=== PATIENT | male | born 1980 | race African-American/Black ===

== ENCOUNTER 2022-02-10 23:53 | Emergency (ER) | payer BC ==
[2022-02-11 00:11] VITALS: BP 135/81; PULSE 76; TEMP 98; BMI 28.7
[2022-02-11] MEDS ORDERED: metroNIDAZOLE 250 MG TABLET PO ONE (00:29)
[2022-02-11 01:38] LABS: EPI CELLS 19 /uL (0-25.1); HYALINE CASTS 8 /uL (0-3.1); PH,URINE 6.5 (5.0-8.0); URINE APPEARANCE CLEAR; URINE BACTERIA 141 /uL (0-1359); URINE BILIRUBIN NEGATIVE (NEGATIVE); URINE COLOR YELLOW; URINE GLUCOSE (UA) NEGATIVE (NEGATIVE); URINE KETONE NEGATIVE (NEGATIVE); URINE LEUK ESTERASE 1+ (NEGATIVE); URINE NITRITE NEGATIVE (NEGATIVE); URINE PROTEIN NEGATIVE (NEGATIVE); URINE RBC 5 /uL (0-23.9); URINE WBC 47 /uL (0-25.8)
[2022-02-11 02:58] LABS: HIV INTERPRETATION NEGATIVE (NEGATIVE)
== END 2022-02-11 02:03 | disposition home or self-care (01) ==
LOC: JER 23:53
DX: R36.9 Urethral discharge, unspecified (principal)
CPT/HCPCS: 36415; 81003; 86780; 87086; 87389; 87491; 87591; 99284-25

== ENCOUNTER 2022-04-24 21:14 | Emergency (ER) | payer OTHER, BC ==
[2022-04-24 21:27] VITALS: BP 125/80; PULSE 61; TEMP 98.3; BMI 22.8
[2022-04-24] MEDS ORDERED: KETOROLAC TROMETHAMINE 30 MG/1 ML VIAL IM ONE (22:46)
[2022-04-24] MEDS ORDERED: KETOROLAC TROMETHAMINE 30 MG/1 ML VIAL ONE (22:52)
== END 2022-04-24 23:12 | disposition home or self-care (01) ==
LOC: JERFT 21:14
PROC: 3E0233Z Introduction of Anti-inflammatory into Muscle, Percutaneous Approach (ICD-10-PCS; principal; 2022-04-24)
DX: M79.10 Myalgia, unspecified site (principal); M54.2 Cervicalgia
CPT/HCPCS: 99284-25

== ENCOUNTER 2022-05-05 11:46 | Emergency (ER) | payer OTHER, BC ==
[2022-05-05 12:07] VITALS: BP 129/88; PULSE 79; BMI 22.8
[2022-05-05 14:37] VITALS: TEMP 98.2
[2022-05-05] MEDS ORDERED: HYDROmorphone HCL CARPU-JECT 2 MG/1 ML DISP.SYRIN IM ONE (15:05)
== END 2022-05-05 16:04 | disposition home or self-care (01) ==
LOC: JERFT 11:46
PROC: 3E023GC Introduction of Other Therapeutic Substance into Muscle, Percutaneous Approach (ICD-10-PCS; principal; 2022-05-05)
DX: R07.81 Pleurodynia (principal); M25.522 Pain in left elbow; V89.2XXA Person injured in unspecified motor-vehicle accident, traffic, initial encounter
CPT/HCPCS: 71101-TC-LT-FY; 73070-TC-LT-FY; 73562-TC-LT-FY; 74176-TC; 99285-25; C9803-CS; U0003; U0005

== ENCOUNTER 2022-07-19 14:08 | Emergency (ER) | payer OTHER, BC ==
[2022-07-19 14:30] VITALS: BP 118/89; PULSE 73; RESP 18; TEMP 98.1; BMI 24.3
== END 2022-07-19 17:01 | disposition left against medical advice (07) ==
LOC: JER 14:08 → JERFT 14:08
DX: R07.82 Intercostal pain (principal)
CPT/HCPCS: 99281-25